=== PATIENT | female | born 1990 | race Caucasian/White ===

== ENCOUNTER 2019-01-18 11:52 | Inpatient (IN) | payer MEDICARE, MEDICAID | END 2019-01-21 11:47 | disposition home or self-care (01) | LOC: ER 11:52 → SUR 3N 16:35 | DX: L03.115 Cellulitis of right lower limb (principal) ==

== ENCOUNTER 2020-06-22 15:00 | Emergency (ER) | payer MEDICARE, MEDICAID ==
[~2020-06-22] VITALS: Ht 91.4 cm; Wt 38.2 kg
[~2020-06-22 15:00] MED LIST: GABA-532 PO; HYDR-3964 PO; METH5TAB4 PO; METO-292 PO; NAPR-996 PO; OMEP-84 PO; ONDA4TAB12 PO; POLY17PO10 PO; POTA10TA21 PO; PROP120C2 PO; TOLT4CAP14 PO
[2020-06-22 16:04] LABS: BASOPHILS % (AUTO) 0.6 % (0-1); EOSINOPHILS # (AUTO) 0.1 X10'3 (0-0.9); EOSINOPHILS % (AUTO) 0.7 % (0-6); HEMOGLOBIN 13.7 g/dl (12.0-16.0); LYMPHOCYTES # (AUTO) 2.1 X10'3 (1.1-4.8); LYMPHOCYTES % (AUTO) 28.3 % (21-51); MEAN CORPUSCULAR HEMOGLOBIN 30.9 PG (27.0-31.0); MEAN CORPUSCULAR HGB CONC 34.2 g/dL (33.0-36.5); MEAN CORPUSCULAR VOLUME 90.3 FL (78-98); MEAN PLATELET VOLUME 6.8 FL (7.4-10.4); MONOCYTES # (AUTO) 0.3 X10'3 (0-0.9); NEUTROPHILS % (AUTO) 66.4 % (42-75); PLATELET COUNT 503 X10'3 (140-440); RED BLOOD COUNT 4.43 X10'6 (4.20-5.60); RED CELL DISTRIBUTION WIDTH 13.2 % (11.5-14.5); WHITE BLOOD COUNT 7.5 X10'3 (4.5-11.0)
[2020-06-22] MEDS ORDERED: normal saline 1000ML IV soln IVB ONE (16:10)
[2020-06-22] MEDS ORDERED: ondansetron/PF 4mg/2ml inj IV ONE (16:10)
[2020-06-22] MEDS ORDERED: dicyclomine 10 MG capsule PO ONE (16:10)
[2020-06-22 16:19] LABS: ALANINE AMINOTRANSFERASE 19 U/L (12-78); ALBUMIN 4.5 G/DL (3.4-5.0); ALBUMIN/GLOBULIN RATIO 1.7 (1.1-1.5); ALKALINE PHOSPHATASE 64 IU/L (46-116); ANION GAP 14 (8-16); ASPARTATE AMINO TRANSFERASE 6 U/L (10-37); BILIRUBIN,TOTAL 0.7 MG/DL (0.1-1.0); BLOOD UREA NITROGEN 27 MG/DL (7-18); BUN/CREATININE RATIO 71.1 (6.6-38.0); CALCIUM 8.9 MG/DL (8.5-10.1); CHLORIDE 104 MMOL/L (99-107); CREATININE 0.38 MG/DL (0.40-0.90); GLUCOSE 99 MG/DL (70-104); LIPASE 121 U/L (73-393); POTASSIUM 3.8 MMOL/L (3.5-5.1); SODIUM 142 MMOL/L (135-145); TOTAL CARBON DIOXIDE 24.1 MMOL/L (24-32); TOTAL PROTEIN 7.2 G/DL (6.4-8.2); eGFR > 90 ML/MIN
[2020-06-22 16:42] LABS: CLARITY,URINE TURBID (Clear); COLOR,URINE STRAW (Yellow); GLUCOSE, URINE NEGATIVE (Neg); KETONES,URINE TRACE mg/dl (Neg); LEUKOCYTE ESTERASE ,URINE MODERATE (Neg); NITRITES, URINE NEGATIVE (Neg); OCCULT BLOOD,URINE NEGATIVE (Neg); PROTEIN,URINE 100 mg/dl (Neg); UROBILINOGEN,URINE 0.2 E.U/dL (0.2-1.0)
[2020-06-22 16:45] LABS: UA COLLECTION TYPE STRAIGHT CATH
[2020-06-22 16:49] LABS: SQUAMOUS EPITHELIAL CELL,UR FEW /LPF (FEW)
[2020-06-22 16:50] LABS: HYALINE CASTS 0-3 /LPF (NEGATIVE); MUCUS STRANDS FEW /LPF (Neg); TRIPLE PHOSPHATE CRYST 1+ /HPF (NEGATIVE)
[2020-06-22 16:52] LABS: BACTERIA,URINE 4+ /HPF (Neg)
[2020-06-22] MEDS ORDERED: CefTRIAXone/D5W-Rocephin 1gm 50 ML IV ONE (17:15)
[2020-06-22] MEDS ORDERED: SULF1TAB49 PO (19:37)
[2020-06-22] MEDS ORDERED: diphenhydrAMINE 50 mg/ml inj IV ONE (19:45)
[2020-06-22] MEDS ORDERED: proCHLORperazine 10 MG/2 ml inj IV ONE (19:45)
[2020-06-22 20:16] VITALS: BP 96/69
== END 2020-06-22 20:17 | disposition home or self-care (01) ==
LOC: ER 15:01
DX: N39.0 Urinary tract infection, site not specified (principal); R11.2 Nausea with vomiting, unspecified; Z98.890 Other specified postprocedural states; Z79.2 Long term (current) use of antibiotics; Z88.8 Allergy status to other drugs, medicaments and biological substances; Z79.899 Other long term (current) drug therapy
CPT/HCPCS: 36415; 71045; 74176; 80053; 81001; 83690; 85025; 87077; 87088; 87186; 96365; 96375; 99285; J0696; J0780; J1200; J2405; J7030

== ENCOUNTER 2024-07-10 10:16 | Inpatient (IN) | payer MEDICARE, MEDICAID ==
[~2024-07-10] VITALS: Ht 154.9 cm; Wt 28.2 kg
[2024-07-10] VITALS (8 sets, daily range): BP systolic 94–108; BP diastolic 35–52; PULSE 131–138; RESP 17–24; TEMP 95.5; O2SAT 99–100
[~2024-07-10 10:16] MED LIST changes: +ONDA-243 PO; -ONDA4TAB12 PO; -TOLT4CAP14 PO; +TOLT4CAP28 PO
[2024-07-10] MEDS: glucagon, human recombinant 1mg kit IM ONE (10:28)
[2024-07-10] MEDS: normal saline 1000ml 1,000 ML IV ONE (10:29)
[2024-07-10] MEDS: dextrose 50%-water 50ml dispensing syringe IV ONE (10:29)
[2024-07-10] MEDS: piperacillin/tazo 3.375gm/50ml 50 ML IV ONE (10:40)
[2024-07-10 10:57] LABS: BASOPHILS % (AUTO) 0.1 % (0-1); MEAN CORPUSCULAR HEMOGLOBIN 29.4 PG (27.0-31.0); MEAN CORPUSCULAR HGB CONC 32.5 g/dL (33.0-36.5)
[2024-07-10 10:59] LABS: EOSINOPHILS # (AUTO) 0.2 X10'3 (0-0.9); EOSINOPHILS % (AUTO) 0.8 % (0-6); HEMATOCRIT 34.4 % (35.0-45.0); HEMOGLOBIN 11.2 g/dl (12.0-16.0); LYMPHOCYTES # (AUTO) 2.9 X10'3 (1.1-4.8); LYMPHOCYTES % (AUTO) 10.2 % (21-51); MEAN CORPUSCULAR VOLUME 90.4 FL (78-98); MONOCYTES # (AUTO) 0.9 X10'3 (0-0.9); MONOCYTES % (AUTO) 3.3 % (2-12); NEUTROPHILS # (AUTO) 24.2 X10'3 (1.8-7.7); NEUTROPHILS % (AUTO) 85.6 % (42-75); PLATELET COUNT 635 X10'3 (140-440); PROTHROMBIN TIME 44.7 SECONDS (9.0-12.0); RED BLOOD COUNT 3.81 X10'6 (4.20-5.60); RED CELL DISTRIBUTION WIDTH 14.2 % (11.5-14.5)
[2024-07-10 11:04] LABS: WHITE BLOOD COUNT 28.2 X10'3 (4.5-11.0)
[2024-07-10 11:07] LABS: BILIRUBIN,URINE NEGATIVE (Neg); CLARITY,URINE TURBID (Clear); COLOR,URINE STRAW (Yellow); GLUCOSE, URINE 100 mg/dl (Neg); KETONES,URINE 15 mg/dl (Neg); LEUKOCYTE ESTERASE ,URINE MODERATE (Neg); NITRITES, URINE NEGATIVE (Neg); OCCULT BLOOD,URINE MODERATE (Neg); PROTEIN,URINE 100 mg/dl (Neg)
[2024-07-10 11:10] LABS: UA COLLECTION TYPE FOLEY CATH
[2024-07-10 11:11] LABS: INR 4.8 INR
[2024-07-10] MEDS: normal saline 1000ML IV soln IV ONE (11:11)
[2024-07-10] MEDS: CefTRIAXone 2gm/D5W 50ml BAG 50 ML IV ONE (11:12)
[2024-07-10 11:13] LABS: BACTERIA,URINE 4+ /HPF (Neg); SQUAMOUS EPITHELIAL CELL,UR FEW /LPF (FEW)
[2024-07-10 11:14] LABS: RBC,URINE 20-50 /HPF (0-2)
[2024-07-10 11:14] LABS: ALBUMIN 2.9 G/DL (3.4-5.0); ALKALINE PHOSPHATASE 130 IU/L (46-116); ASPARTATE AMINO TRANSFERASE 6 U/L (10-37); BILIRUBIN,TOTAL 2.5 MG/DL (0.1-1.0); CHLORIDE 95 MMOL/L (99-107); POTASSIUM 3.6 MMOL/L (3.5-5.1); SODIUM 128 MMOL/L (135-145)
[2024-07-10 11:15] LABS: WBC,URINE 30-50 /HPF (0-4)
[2024-07-10 11:18] LABS: BURR CELLS FEW; PLATELET ESTIMATE INCREASED; SMUDGE CELLS 1+; TOTAL CELLS COUNTED 100
[2024-07-10 11:29] LABS: ALANINE AMINOTRANSFERASE 1249 U/L (12-78); ALBUMIN/GLOBULIN RATIO 1.8 (1.1-1.5); ANION GAP 22 (8-16); BLOOD UREA NITROGEN 33 MG/DL (7-18); BUN/CREATININE RATIO 42.3 (10.0-20.0); CREATININE 0.78 MG/DL (0.40-0.90); MAGNESIUM 2.2 MG/DL (1.5-2.4); TOTAL PROTEIN 4.5 G/DL (6.4-8.2); eCRCL 77 ML/MIN; eGFR 85 ML/MIN
[2024-07-10 11:31] LABS: TOTAL CARBON DIOXIDE 10.8 MMOL/L (24-32)
[2024-07-10 11:32] LABS: GLUCOSE 657 MG/DL (70-104)
[2024-07-10] MEDS ORDERED: iohexol 300mg/ml 100ml inj. ONE ×2 (11:48→23:39)
[2024-07-10] MEDS: morphine 2 MG/ML inj. syringe IV ONE (12:23)
[2024-07-10] MEDS ORDERED: ondansetron/PF 4mg/2ml inj IV PRN (14:25)
[2024-07-10] MEDS ORDERED: magnesium hydroxide 30ml (MOM) UD suspension PO PRN (14:25)
[2024-07-10] MEDS ORDERED: acetaminophen 325mg tablet PO PRN ×2 (14:25)
[2024-07-10] MEDS: LidoCAINE 2% Topical Jelly 11mL syringe (UROJET) TOP ONE (14:31)
[2024-07-10] MEDS: morphine 4 MG/ML inj SYRINge IV PRN (14:42)
[2024-07-10] MEDS ORDERED: ringers solution, lacted 1,000 ML IV SCH (15:10)
[2024-07-10 15:46] LABS: OXYGEN SATURATION (MIXED VEN) 78.4 % (60-80); PO2 MIXED VENOUS (TEMP COR) 49.4 mmHg (35-46)
[2024-07-10] MEDS: ringers solution, lacted 1,000 ML IV SCH (18:20)
[2024-07-10] MEDS: sodium bicarbonate 1meq/ml inj 150 ML in dextrose 5%-water 1,000 ML IV SCH (18:41)
[2024-07-10 19:23] LABS: ALBUMIN 3.4 G/DL (3.4-5.0); ANION GAP 23 (8-16); BLOOD UREA NITROGEN 21 MG/DL (7-18); BUN/CREATININE RATIO 40.4 (10.0-20.0); CALCIUM 7.1 MG/DL (8.5-10.1); CHLORIDE 119 MMOL/L (99-107); CREATININE 0.52 MG/DL (0.40-0.90); GLUCOSE 89 MG/DL (70-104); POTASSIUM 3.1 MMOL/L (3.5-5.1); SODIUM 148 MMOL/L (135-145); eCRCL 116 ML/MIN; eGFR > 90 ML/MIN
[2024-07-10 19:46] LABS: TOTAL CARBON DIOXIDE 6.3 MMOL/L (24-32)
[2024-07-10] MEDS: NORepinephrine 8mg/ 250ml NS 250 ML IV SCH (23:10)
[2024-07-10] MEDS: NORepinephrine 8mg/ 250ml NS 250 ML IV ONE (23:10)
[2024-07-10] MEDS: morphine 2 MG/ML inj. syringe IV PRN (23:27)
[2024-07-11] VITALS (25 sets, daily range): BP systolic 44–147; BP diastolic 22–98; PULSE 126–158; RESP 17–37; O2SAT 90–100
[2024-07-11 00:04] LABS: ALBUMIN/GLOBULIN RATIO 2.1 (1.1-1.5); ALKALINE PHOSPHATASE 140 IU/L (46-116); ANION GAP 24 (8-16); BILIRUBIN,TOTAL 3.1 MG/DL (0.1-1.0); BLOOD UREA NITROGEN 24 MG/DL (7-18); BUN/CREATININE RATIO 41.4 (10.0-20.0); CALCIUM 6.8 MG/DL (8.5-10.1); CHLORIDE 118 MMOL/L (99-107); CREATININE 0.58 MG/DL (0.40-0.90); GLUCOSE 72 MG/DL (70-104); POTASSIUM 3.2 MMOL/L (3.5-5.1); SODIUM 148 MMOL/L (135-145); TOTAL PROTEIN 4.4 G/DL (6.4-8.2); eCRCL 61 ML/MIN; eGFR > 90 ML/MIN
[2024-07-11 00:23] LABS: TOTAL CARBON DIOXIDE 6.2 MMOL/L (24-32)
[2024-07-11] MEDS: potassium Cl 20mEq/100mL bag 100 ML IV SCH (00:23)
[2024-07-11 00:48] LABS: ASPARTATE AMINO TRANSFERASE 3333 U/L (10-37)
[2024-07-11 00:49] LABS: ALANINE AMINOTRANSFERASE 2449 U/L (12-78)
[2024-07-11 02:08] LABS: HEMATOCRIT 32.9 % (35.0-45.0); HEMOGLOBIN 10.7 g/dl (12.0-16.0); MEAN CORPUSCULAR HEMOGLOBIN 29.2 PG (27.0-31.0); MEAN CORPUSCULAR HGB CONC 32.5 g/dL (33.0-36.5); MEAN CORPUSCULAR VOLUME 89.8 FL (78-98); MEAN PLATELET VOLUME 7.3 FL (7.4-10.4); PLATELET COUNT 361 X10'3 (140-440); RED BLOOD COUNT 3.66 X10'6 (4.20-5.60); RED CELL DISTRIBUTION WIDTH 14.4 % (11.5-14.5)
[2024-07-11 02:30] LABS: APTT 59 SECONDS (22-32); FIBRINOGEN 58 MG/DL (177-424)
[2024-07-11] MEDS: sodium bicarbonate (8.4%) 1 mEq/ml syringe ONE (02:33)
[2024-07-11 02:38] LABS: ALBUMIN 2.9 G/DL (3.4-5.0); ALBUMIN/GLOBULIN RATIO 2.2 (1.1-1.5); ALKALINE PHOSPHATASE 137 IU/L (46-116); ANION GAP 21 (8-16); BLOOD UREA NITROGEN 25 MG/DL (7-18); BUN/CREATININE RATIO 46.3 (10.0-20.0); CALCIUM 6.8 MG/DL (8.5-10.1); CHLORIDE 117 MMOL/L (99-107); CREATININE 0.54 MG/DL (0.40-0.90); GLUCOSE 50 MG/DL (70-104); PHOSPHORUS 2.4 MG/DL (2.3-4.5); POTASSIUM 4.9 MMOL/L (3.5-5.1); SODIUM 146 MMOL/L (135-145); TOTAL PROTEIN 4.2 G/DL (6.4-8.2); eCRCL 66 ML/MIN; eGFR > 90 ML/MIN
[2024-07-11 02:39] LABS: D-DIMER > 35.20 MG/L FEU (0-0.50)
[2024-07-11] MEDS: dextrose 50%-water 50ml dispensing syringe IV PRN (02:44)
[2024-07-11] MEDS ORDERED: dextrose 50%-water 50ml dispensing syringe IV PRN (02:45)
[2024-07-11] MEDS ORDERED: DEXTROSE 15 GM of carb/4 tabs (each vial/BOTTLE has 4 tablets) PO PRN ×2 (02:45)
[2024-07-11 02:56] LABS: WHITE BLOOD COUNT 31.2 X10'3 (4.5-11.0)
[2024-07-11 02:58] LABS: ALANINE AMINOTRANSFERASE 2532 U/L (12-78); ASPARTATE AMINO TRANSFERASE 3560 U/L (10-37)
[2024-07-11 03:51] LABS: ABG BASE EXCESS -17.3 mmol/L (-2.0-3.0); ABG HCO3 7.6 mmol/L (21.0-28.0); ABG OXYGEN SATURATION 97.1 % (94.0-98.0); ABG PCO2 (T) 16.6 mmHg (32.0-45.0); ABG PH (T) 7.276 (7.350-7.450); ALLEN'S TEST Modified; FCOHb 1.4 % (0.5-1.5); FHHb 2.9 % (0.0-5.0); FMetHb 0.2 % (0.0-1.5); FO2Hb 95.5 % (94.0-98.0); MODE VENT - prvc; PEEP 5 cm H2O; RESPIRATORY RATE 18 b/min; TIDAL VOLUME 325 mL; TOTAL HEMOGLOBIN 10.8 G/dl (12.0-16.0)
[2024-07-11] MEDS: sodium bicarbonate (8.4%) 1 mEq/ml syringe IV ONE (04:02)
[2024-07-11] MEDS: calcium chloride 100 MG/1 ML inj IV ONE (04:02)
[2024-07-11] MEDS: rocuronium 10mg/ml inj IV ONE (04:04)
[2024-07-11 04:13] LABS: PLATELET COUNT 361 X10'3 (140-440)
[2024-07-11] MEDS: propofol 1000mg/100ml bottle 100 ML IV SCH ×2 (04:29→04:50)
[2024-07-11] MEDS: propofol 1000mg/100ml bottle 100 ML IV ONE (04:32)
[2024-07-11] MEDS: vasopressin inj. 40 UNIT in dextrose 5%-water 50ml 38 ML IV SCH (04:51)
[2024-07-11] MEDS ORDERED: HUM PROTHROMB CPLX-LANS 0 UNIT IV ONE ×2 (05:00→05:05)
[2024-07-11] MEDS: PIGGYBACK IV ONE (06:10)
[2024-07-11] MEDS: HUM PROTHROMB CPLX LANS IV ONE (06:10)
[2024-07-11] MEDS: COMMUNICATION ORDER 1 EA MISC MC ONE (07:51)
[2024-07-11] MEDS ORDERED: CefTRIAXone 2gm/D5W 50ml BAG 50 ML IV SCH (08:00)
[2024-07-11] MEDS ORDERED: rocuronium 10mg/ml inj IV ONE (08:00)
[2024-07-11 08:30] LABS: APTT 34 SECONDS (22-32); INR 1.6 INR
[2024-07-11 08:39] LABS: PROTHROMBIN TIME 16.3 SECONDS (9.0-12.0)
[2024-07-11 08:41] LABS: ABG BASE EXCESS -11.8 mmol/L (-2.0-3.0); ABG HCO3 11.9 mmol/L (21.0-28.0); ABG PCO2 (T) 20.2 mmHg (32.0-45.0); ABG PH (T) 7.384 (7.350-7.450); ABG PO2 (T) 169.1 mmHg (83.0-108.0); ALLEN'S TEST POSITIVE; FCOHb 1.6 % (0.5-1.5); FMetHb 0.2 % (0.0-1.5); FO2Hb 97.2 % (94.0-98.0); MODE VENT - AC; PATIENT TEMPERATURE 36.6; RESPIRATORY RATE 18 b/min; TOTAL HEMOGLOBIN 8.5 G/dl (12.0-16.0)
[2024-07-11] MEDS: fentaNYL/PF 50MCG/1 ML 2ML syringe IV ONE (09:11)
[2024-07-11] MEDS: FENTANYL-0.9 % NACL/PF 100 ML IV SCH (10:02)
[2024-07-11] MEDS: MEROPENEM 1GM/NS 100ML IVPB 100 ML IV SCH (11:11)
[2024-07-11] MEDS: NORMAL SALINE IV SCH (11:13)
[2024-07-11] MEDS: DAPTOMYCIN IV SCH (11:13)
[2024-07-11] MEDS: mineral oil/petrolatum ophthal oint EACHEYE PRN (11:13)
[2024-07-11] MEDS ORDERED: CHOL100012 PO (11:30)
[2024-07-11] MEDS ORDERED: ONDA-243 PO (11:30)
[2024-07-11] MEDS ORDERED: GABA-530 PO (11:30)
[2024-07-11] MEDS ORDERED: OMEP40CA21 PO (11:30)
[2024-07-11] MEDS ORDERED: IBUP-24 PO (11:30)
[2024-07-11 12:51] LABS: CREATINE KINASE 7210 U/L (26-192)
[2024-07-11] MEDS: LORazepam 2 mg/ml vial ONE (14:24)
[2024-07-11] MEDS: diazepam inj 5 MG/ML inj. ONE (14:40)
[2024-07-11] MEDS: LORazepam 2 mg/ml vial IV ONE (15:01)
[2024-07-11] MEDS: metroNIDAZOLE-Flagyl 500mg/NS 100 ML IV SCH (15:23)
[2024-07-11 17:19] LABS: HEMATOCRIT 24.9 % (35.0-45.0); HEMOGLOBIN 8.3 g/dl (12.0-16.0); MEAN CORPUSCULAR HEMOGLOBIN 29.7 PG (27.0-31.0); MEAN CORPUSCULAR HGB CONC 33.4 g/dL (33.0-36.5); MEAN CORPUSCULAR VOLUME 89.1 FL (78-98); MEAN PLATELET VOLUME 7.3 FL (7.4-10.4); PLATELET COUNT 243 X10'3 (140-440); RED CELL DISTRIBUTION WIDTH 14.1 % (11.5-14.5); WHITE BLOOD COUNT 17.8 X10'3 (4.5-11.0)
[2024-07-11] MEDS ORDERED: phenylephrine 10mg/ml inj. -priapism dosing ONE (17:48)
[2024-07-11] MEDS ORDERED: PHENYLephrine 10mg/ml inj. 50 MG in normal saline 250ml IV soln 245 ML IV PRN (17:50)
[2024-07-11 17:58] LABS: ALBUMIN 2.9 G/DL (3.4-5.0); ALBUMIN/GLOBULIN RATIO 1.2 (1.1-1.5); ALKALINE PHOSPHATASE 161 IU/L (46-116); ANION GAP 27 (8-16); BILIRUBIN,TOTAL 3.4 MG/DL (0.1-1.0); BLOOD UREA NITROGEN 31 MG/DL (7-18); BUN/CREATININE RATIO 31.6 (10.0-20.0); CALCIUM 7.4 MG/DL (8.5-10.1); CHLORIDE 112 MMOL/L (99-107); CREATININE 0.98 MG/DL (0.40-0.90); GLUCOSE 110 MG/DL (70-104); POTASSIUM 4.3 MMOL/L (3.5-5.1); SODIUM 152 MMOL/L (135-145); TOTAL PROTEIN 5.3 G/DL (6.4-8.2); eCRCL 36 ML/MIN; eGFR 65 ML/MIN
[2024-07-11] MEDS ORDERED: Duosol 4K/3 Ca (w/calcium) 5,000 ML HE SCH (18:05)
[2024-07-11] MEDS ORDERED: magnesium sulf-water 4G/100mL 100 ML IV PRN (18:05)
[2024-07-11] MEDS ORDERED: calcium chloride inj. 1,000 MG in normal saline 100ml IV soln 100 ML IV PRN (18:05)
[2024-07-11] MEDS ORDERED: potassium Cl 40MEQ/270ML bag 270 ML IV PRN (18:05)
[2024-07-11] MEDS ORDERED: sodium phosphate inj. 30 MMOL in dextrose 5%-water 250 ML IV PRN (18:05)
[2024-07-11 18:21] LABS: TOTAL CARBON DIOXIDE 12.7 MMOL/L (24-32)
[2024-07-11 18:35] LABS: ASPARTATE AMINO TRANSFERASE > 7000 U/L (10-37)
[2024-07-11 18:36] LABS: ALANINE AMINOTRANSFERASE > 7000 U/L (12-78)
[2024-07-11 18:54] LABS: PLATELET ESTIMATE NORMAL; TOTAL CELLS COUNTED 100
== END 2024-07-11 18:14 | DRG 871 ==
LOC: ER 10:16 → ED HOLD 14:27 → CICU 2S 17:50
PROVIDERS: ADMIT Internal Medicine Critical Care Medicine; ATTEND Internal Medicine Critical Care Medicine
PROC: 02H633Z Insertion of Infusion Device into Right Atrium, Percutaneous Approach (ICD-10-PCS; 2024-07-10)
PROC: BQ2S1ZZ Computerized Tomography (CT Scan) of Left Lower Extremity using Low Osmolar Contrast (ICD-10-PCS; 2024-07-10)
PROC: B548ZZA Ultrasonography of Superior Vena Cava, Guidance (ICD-10-PCS; 2024-07-10)
PROC: 0BH17EZ Insertion of Endotracheal Airway into Trachea, Via Natural or Artificial Opening (ICD-10-PCS; principal; 2024-07-11)
PROC: 5A1935Z Respiratory Ventilation, Less than 24 Consecutive Hours (ICD-10-PCS; 2024-07-11)
PROC: 02H633Z Insertion of Infusion Device into Right Atrium, Percutaneous Approach (ICD-10-PCS; 2024-07-11)
PROC: 30233K1 Transfusion of Nonautologous Frozen Plasma into Peripheral Vein, Percutaneous Approach (ICD-10-PCS; 2024-07-11)
PROC: 30233M1 Transfusion of Nonautologous Plasma Cryoprecipitate into Peripheral Vein, Percutaneous Approach (ICD-10-PCS; 2024-07-11)
PROC: B548ZZA Ultrasonography of Superior Vena Cava, Guidance (ICD-10-PCS; 2024-07-11)
DX: A41.9 Sepsis, unspecified organism (principal); D65 Disseminated intravascular coagulation [defibrination syndrome]; G93.41 Metabolic encephalopathy; R65.21 Severe sepsis with septic shock; J96.00 Acute respiratory failure, unspecified whether with hypoxia or hypercapnia; N39.0 Urinary tract infection, site not specified; G83.4 Cauda equina syndrome; D68.9 Coagulation defect, unspecified; N17.9 Acute kidney failure, unspecified; E87.1 Hypo-osmolality and hyponatremia; E87.20 Acidosis, unspecified; I70.222 Atherosclerosis of native arteries of extremities with rest pain, left leg; E16.2 Hypoglycemia, unspecified; E86.0 Dehydration; R74.01 Elevation of levels of liver transaminase levels; Z98.1 Arthrodesis status; Z88.1 Allergy status to other antibiotic agents; Z91.040 Latex allergy status; Z79.899 Other long term (current) drug therapy; Z90.49 Acquired absence of other specified parts of digestive tract; Q05.9 Spina bifida, unspecified
CPT/HCPCS: 36415; 36430; 36600; 70450; 71045; 71260; 73701; 74177; 80048; 80053; 81001; 82550; 82800; 82803; 82810; 82947; 82948; 83605; 83735; 84100; 84145; 84484; 85007; 85018; 85025; 85379; 85384; 85610; 85730; 86885; 86900; 86901; 86920; 87040; 87070; 87077; 87081; 87088; 87186; 93005; 93926; 94002; 94003; 99291; 99292; A4314; A4340; A6258; A6449; A9900; C1751; C1752; C1758; G0378; J0696; J0878; J1610; J2060; J2185; J2270; J2370; J2543; J2704; J3010; J3360; J3480; J3490; J7030; J7040; J7060; J7070; J7120; J7168; P9012; P9059; Q9967